=== PATIENT | female | born 1955 | race Caucasian/White ===

== ENCOUNTER 2017-01-19 12:16 | Observation (INO) | payer BC ==
[2017-01-19] MEDS ORDERED: Ondansetron 4 MG/2 ML SDV IVPUSH ONE (12:19)
[2017-01-19] MEDS ORDERED: Ondansetron 4 MG/2 ML SDV ONE (12:43)
[2017-01-19] MEDS ORDERED: Ondansetron 4 MG/2 ML SDV IVPUSH STA ×2 (12:43→14:00)
[2017-01-19 12:48] LABS: CHLORIDE,CL 103 mEq/L (98-106); SODIUM,NA 140 mEq/L (136-145)
--- NOTE | 2017-01-19 12:48 | EDM.PDOC ---
ED HPI GENERAL MEDICAL PROBLEM - General Chief Complaint: General Stated Complaint: VOMITTING/REALLY DIZZY Time Seen by Provider: 01/19/17 12:29 Source of Information: Reports: Patient, Family History Limitations: Reports: No Limitations - History of Present Illness INITIAL COMMENTS - FREE TEXT/NARRATIVE: Patient presents to ER with with severe dizziness and vomiting. Patient states she noted this about 2 hours ago with rapid onset while out of town doing errands. She states she was getting into car and noted severe dizziness, some visual changes when vomiting of coffee she drank this am. She states she did not have breakfast and was starting a new diet today. Patient states she has had this episode previously abut 3 weeks ago with spontaneous resolution of the nausea in 4-5 hours. She felt she had a full recovery. She affirms extreme sweating but denies pain in head, abdomen or extremities. Denies trauma. She affirms extreme weakness. She denies illness or recent sick contacts. She presents to ER for evaluation. Onset: Today, Sudden Onset Date: 01/19/17 Onset Time: 10:00 Duration: Hour(s):, Constant Location: Reports: Abdomen Quality: Reports: Other (Severe nausea with emesis) Severity: Severe Improves with: Reports: Medication (Zofran 8 mg IV) Worsens with: Reports: Movement Context: Denies: Sick Contact, Trauma Associated Symptoms: Reports: Diaphoresis, Nausea/Vomiting. 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 Denies: Fever, Chills, Malaise, Fatigue, Night Sweats, Decreased Appetite HEENT: Reports: No Symptoms Respiratory: Reports: No Symptoms Cardiovascular: Reports: Blood Pressure Problem (History of HTN-stoppped medications when lost weight-she recently regained weight and indicated she was going to reinitiate antihypertensives.). Denies: Chest Pain Endocrine: Reports: No Symptoms GI/Abdominal: Reports: No Symptoms. Denies: Abdominal Pain, Black Stool, Bloody Stool, Constipation, Decreased Appetite, Difficulty Swallowing, Hematemesis, Melena : Reports: No Symptoms Musculoskeletal: Reports: No Symptoms Skin: Reports: No Symptoms Neurological: Reports: Tingling (BLE), Weakness Psychiatric: Reports: No Symptoms Hematologic/Lymphatic: Reports: No Symptoms Immunologic: Reports: No Symptoms ED EXAM, GENERAL - Physical Exam Exam: See Below General Appearance: Alert, Severe Distress (Diaphoretic) Eye Exam: Right Eye: Nystagmus (Left nystagmus), Bilateral Eye: EOMI, Normal Fundi, Normal Inspection, PERRL (Dilation with slow response-Bilaterally) Ears: Normal External Exam, Normal Canal, Hearing Grossly Normal, Normal TMs Ear Exam: Bilateral Ear: Auricle Normal, Canal Normal, TM normal Nose: Normal Inspection, Normal Mucosa, No Blood Throat/Mouth: Normal Inspection, Normal Lips, Normal Teeth, Normal Gums, Normal Oropharynx, Normal Voice, No Airway Compromise Head: Atraumatic, Normocephalic Neck: Normal Inspection, Supple, Non-Tender, Full Range of Motion Respiratory/Chest: No Respiratory Distress, Lungs Clear, Normal Breath Sounds, No Accessory Muscle Use, Chest Non-Tender Cardiovascular: Normal Peripheral Pulses, Regular Rate, Rhythm, No Edema, No JVD , No Murmur Peripheral Pulses: 2+: Carotid (L), Carotid (R), Brachial (L), Brachial (R), Radial (L), Radial (R), Femoral (L), Femoral (R), Popliteal (L), Popliteal (R), Posterior Tibial (L), Posterior Tibial (R), Dorsalis Pedis (L), Dorsalis Pedis ( R) GI/Abdominal: Soft, Non-Tender (Female) Exam: Deferred Rectal (Female) Exam: Deferred Back Exam: Normal Inspection, Full Range of Motion Extremities: Normal Inspection, Normal Range of Motion, Non-Tender, No Pedal Edema, Normal Capillary Refill Neurological: Alert, Oriented, CN II-XII Intact, Normal Cognition, Normal Gait, Normal Reflexes, No Motor/Sensory Deficits Psychiatric: Normal Affect, Normal Mood, Anxious Skin Exam: Warm, Dry, Normal Color, No Rash, Diaphoretic Course - Vital Signs Last Recorded V/S: Last Vital Signs Temp 35.2 C L 01/19/17 12:30 Pulse 103 H 01/19/17 12:30 Resp 22 H 01/19/17 12:30 BP 144/102 H 01/19/17 12:30 Pulse Ox 98 01/19/17 12:30 - Orders/Labs/Meds Orders: Active Orders 24 hr Category Date Time Status Head wo Cont [CT] Stat Exams 01/19/17 12:41 Taken DRUG SCREEN URINE BIORAD [URCHEM] Stat Lab 01/19/17 13:02 Uncollected GLYCOSYLATED HEMOGLOBIN,HGBA1C [CHEM] Stat Lab 01/19/17 13:23 Ordered UA W/MICROSCOPIC [URIN] Stat Lab 01/19/17 13:02 Uncollected NS + KCl 20mEq/L [Normal Saline with 20 mEq KCl] 1,000 Med 01/19/17 13:30 Active ml IV ASDIRECTED Medication Orders Potassium Chloride/Sodium Chloride (Normal Saline With 20 Meq Kcl) 1,000 mls @ 125 mls/hr IV ASDIRECTED JESUS Labs: Laboratory Tests 01/19/17 01/19/17 Range/Units 12:19 12:25 WBC 10.2 H (5.0-10.0) 10^3/uL RBC 4.83 (4.00-5.50) 10^6/uL Hgb 14.1 (12.0-16.0) g/dL Hct 39.6 (37.0-47.0) % MCV 82.0 (82.0-94.0) fL MCH 29.2 (27.0-32.0) pg MCHC 35.6 (33.0-38.0) g/dL RDW Coeff of Lulu 13.3 (11.0-15.0) % Plt Count 287 (150-400) 10^3/uL Neut % (Auto) 43.5 (35-85) % Lymph % (Auto) 46.4 (10-55) % Johnson % (Auto) 8.7 (0-16) % Eos % (Auto) 1.1 (0-5) % Baso % (Auto) 0.3 (0-3) % Neut # (Auto) 4.46 (1.80-7.00) 10^3/uL Lymph # (Auto) 4.75 (1.00-4.80) 10^3/uL Johnson # (Auto) 0.89 H (0.00-0.80) 10^3/uL Eos # (Auto) 0.11 (0.00-0.45) 10^3/uL Baso # (Auto) 0.03 10^3/uL Sodium 140 (136-145) mEq/L Potassium 3.2 L D (3.5-5.0) mEq/L Chloride 103 (98-106) mEq/L Carbon Dioxide 18 L (21-32) mmol/L BUN 23 H D (7-18) mg/dL Creatinine 0.7 (0.6-1.0) mg/dL Est Cr Clr Drug Dosing 77.87 mL/min Estimated GFR (MDRD) > 60 (>=60) mL/min Glucose 217 H D (75-99) mg/dL Calcium 9.8 (8.4-10.1) mg/dL Total Bilirubin 0.5 (0.0-1.0) mg/dL AST 15 (15-37) U/L ALT 25 (12-78) U/L Alkaline Phosphatase 95 (46-116) U/L Total Protein 8.4 H (6.4-8.2) g/dL Albumin 4.3 (3.4-5.0) g/dL Meds: Medications Generic Name Dose Route Start Last Admin Trade Name Freq PRN Reason Stop Dose Admin Potassium Chloride/Sodium Chloride 1,000 mls @ 125 mls/hr 01/19/17 13:30 Normal Saline With 20 Meq Kcl IV ASDIRECTED JESUS Discontinued Medications Generic Name Dose Route Start Last Admin Trade Name Freq PRN Reason Stop Dose Admin Ondansetron HCl 8 mg 01/19/17 12:19 01/19/17 13:28 Zofran IVPUSH 01/19/17 12:20 8 mg STAT ONE Administration Ondansetron HCl Confirm 01/19/17 12:43 01/19/17 13:31 Zofran Administered 01/19/17 12:44 Not Given Dose 4 mg .ROUTE .STK-MED ONE Ondansetron HCl 4 mg 01/19/17 12:43 01/19/17 13:30 Zofran IVPUSH 08/28/17 12:44 4 mg NOW STA Administration Departure - Departure Time of Disposition: 13:50 Disposition: Refer to Observation Condition: Good Clinical Impression: Hypokalemia, Nausea & vomiting, Vertigo - Discharge Information Forms: ED Department Discharge - Problem List & Annotations (1) Nausea & vomiting SNOMED Code(s): 06466891 Code(s): R11.2 - NAUSEA WITH VOMITING, UNSPECIFIED Status: Acute (2) Vertigo SNOMED Code(s): 369262783 Code(s): R42 - DIZZINESS AND GIDDINESS Status: Acute - My Orders Last 24 Hours: My Active Orders 01/19/17 12:41 Head wo Cont [CT] Stat 01/19/17 13:02 DRUG SCREEN URINE BIORAD [URCHEM] Stat UA W/MICROSCOPIC [URIN] Stat 01/19/17 13:23 GLYCOSYLATED HEMOGLOBIN,HGBA1C [CHEM] Stat 01/19/17 13:30 NS + KCl 20mEq/L [Normal Saline with 20 mEq KCl] 1,000 ml IV ASDIRECTED - Assessment/Plan Admission H&P: Please use this note as an admission H&P Last 24 Hours: My Active Orders 01/19/17 12:41 Head wo Cont [CT] Stat 01/19/17 13:02 DRUG SCREEN URINE BIORAD [URCHEM] Stat UA W/MICROSCOPIC [URIN] Stat 01/19/17 13:23 GLYCOSYLATED HEMOGLOBIN,HGBA1C [CHEM] Stat 01/19/17 13:30 NS + KCl 20mEq/L [Normal Saline with 20 mEq KCl] 1,000 ml IV ASDIRECTED Assessment:: Nausea and Vomiting Hypokalemia Vertigo Plan: Discussed admission for observation and IVF hydration. Await CT results Antiemetics.-
[2017-01-19] MEDS: NS + KCl 20mEq/L 1,000 ML IV SCH (14:05)
[2017-01-19] MEDS ORDERED: Acetaminophen 325 MG Tab PO PRN (14:19)
[2017-01-19] MEDS: Pantoprazole 40 MG Vial IVPUSH SCH (14:40)
[2017-01-19] MEDS: Promethazine 12.5 MG in Sodium Chloride 0.9% 50 ML IV PRN (16:18)
[2017-01-19] MEDS ORDERED: Ketorolac 30 MG/ML SDV IVPUSH PRN (19:29)
[2017-01-19] MEDS ORDERED: Enalaprilat 1.25 MG/ML SDV IVPUSH ONE (20:37)
--- NOTE | 2017-01-19 20:43 | PCM.PN ---
- General Info Date of Service: 01/19/17 Admission Dx/Problem (Free Text): Admission from ER with Vertigo, nausea, vomiting with subsequent hypokalemia. 01/19/2017-2030- patient with frontal "sinus" headache, noted persistent HTN has not taken Lisinopril as previous prescribed for the past year or so as weight loss was controlling her HTN. Attempted to resume Lisinopril 20 mg po patient refuses indicates she thinks will make her more nausea. Agrees to Ketorolac 30mg IV for headache. Functional Status: Reports: Pain Controlled, Ambulating, Urinating Pain Score: 2 - Review of Systems General: Reports: Weakness, Fatigue, Appetite (Decreased as feels shemay become nauseated and vomit.). Denies: Fever, Malaise, Chills, Night Sweats HEENT: Reports: Headaches, Sinus Congestion. Denies: Visual Changes Pulmonary: Reports: No Symptoms Cardiovascular: Reports: No Symptoms Gastrointestinal: Reports: Decreased Appetite. Denies: Abdominal Pain, Constipation, Diarrhea, Difficulty Swallowing, Flatus, Hematochezia, Melena, Nausea, Vomiting Genitourinary: Reports: No Symptoms Musculoskeletal: Reports: No Symptoms Skin: Reports: No Symptoms Neurological: Reports: Headache, Weakness. Denies: Confusion, Dizziness, Numbness, Paresthesia, Seizure, Syncope, Tingling, Tremors, Trouble Speaking, Difficulty Walking, Change in Speech, Gait Disturbance Psychiatric: Reports: No Symptoms - Patient Data Vitals - Most Recent: Last Vital Signs Temp 36.4 C 01/19/17 20:00 Pulse 83 01/19/17 20:00 Resp 18 01/19/17 20:00 BP 196/103 H 01/19/17 20:00 Pulse Ox 98 01/19/17 20:00 Weight - Most Recent: 79.288 kg Med Orders - Current: Current Medications Acetaminophen (Tylenol) 650 mg PO Q4H PRN PRN Reason: Pain (Mild 1-3)/fever Enalaprilat (Vasotec Iv) 1.25 mg IVPUSH ONETIME ONE Stop: 01/19/17 20:38 Potassium Chloride/Sodium Chloride (Normal Saline With 20 Meq Kcl) 1,000 mls @ 75 mls/hr IV ASDIRECTED JESUS Last Admin: 01/19/17 14:05 Dose: 125 mls/hr Promethazine HCl 12.5 mg/ (Sodium Chloride) 50.5 mls @ 100 mls/hr IV Q6H PRN PRN Reason: Nausea/Vomiting Last Admin: 01/19/17 16:18 Dose: 100 mls/hr Ketorolac Tromethamine (Toradol) 30 mg IVPUSH Q6H PRN PRN Reason: Pain Stop: 01/24/17 19:29 Last Admin: 01/19/17 19:44 Dose: 30 mg Lisinopril (Prinivil) 20 mg PO DAILY JESUS Pantoprazole Sodium (Protonix Iv) 40 mg IVPUSH Q24H JESUS Last Admin: 01/19/17 14:40 Dose: 40 mg Discontinued Medications Ondansetron HCl (Zofran) 8 mg IVPUSH STAT ONE Stop: 01/19/17 12:20 Last Admin: 01/19/17 13:28 Dose: 8 mg Ondansetron HCl (Zofran) Confirm Administered Dose 4 mg .ROUTE .STK-MED ONE Stop: 01/19/17 12:44 Last Admin: 01/19/17 13:31 Dose: Not Given Ondansetron HCl (Zofran) 4 mg IVPUSH NOW STA Stop: 01/19/17 12:44 Last Admin: 01/19/17 13:30 Dose: 4 mg Ondansetron HCl (Zofran) 4 mg IVPUSH NOW STA Stop: 01/19/17 14:01 Last Admin: 01/19/17 14:00 Dose: 4 mg - Exam General: Alert, Oriented, Cooperative, Mild Distress HEENT: Pupils Equal, Pupils Reactive, EOMI, Mucous Membr. Moist/[place]. No: Scleral Icterus Neck: Supple, Trachea Midline, No JVD, No Thyromegaly, +2 Carotid Pulse wo Bruit. No: Lymphadenopathy, Carotid Bruit, Thyromegaly Lungs: Clear to Auscultation, Normal Respiratory Effort Cardiovascular: Regular Rate, Regular Rhythm, No Murmurs, Other (Telemetry NSR) GI/Abdominal Exam: Soft, Non-Tender (Female) Exam: Deferred Back Exam: Normal Inspection, Full Range of Motion Extremities: Normal Inspection, Normal Range of Motion, Non-Tender, No Pedal Edema, Normal Capillary Refill. No: Adin's Sign Peripheral Pulses: 2+: Carotid (L), Carotid (R), Brachial (L), Brachial (R), Radial (L), Radial (R), Dorsalis Pedis (L), Dorsalis Pedis (R) Skin: Warm, Dry, Intact Neurological: No New Focal Deficit, Normal Gait, Normal Speech, Normal Tone, Strength Equal Bilateral, Reflexes Equal Bilateral, Sensation Intact, Cranial Nerves Intact Psy/Mental Status: Alert, Normal Affect, Normal Mood, Labile Mood EKG INTERPRETATION Rhythm: NSR - Problem List & Annotations (1) Nausea & vomiting SNOMED Code(s): 04600542 Code(s): R11.2 - NAUSEA WITH VOMITING, UNSPECIFIED Status: Acute Current Visit: Yes (2) Vertigo SNOMED Code(s): 054277913 Code(s): R42 - DIZZINESS AND GIDDINESS Status: Acute Current Visit: Yes (3) Hypertension SNOMED Code(s): 91151910 Code(s): I10 - ESSENTIAL (PRIMARY) HYPERTENSION Status: Acute Current Visit: Yes - Problem List Review Problem List Initiated/Reviewed/Updated: Yes - My Orders Last 24 Hours: My Active Orders 01/19/17 19:29 Ketorolac [Toradol] 30 mg IVPUSH Q6H PRN 01/19/17 19:45 Lisinopril [Prinivil] 20 mg PO DAILY 01/19/17 20:37 Enalaprilat [Vasotec IV] 1.25 mg IVPUSH ONETIME ONE 01/20/17 05:11 CBC WITH AUTO DIFF [HEME] Routine CMP [COMPREHENSIVE METABOLIC PN,CMP] [CHEM] Routine - Assessment Assessment:: CT without contrast WNL Vertigo resolving-able to ambulate to BR-output WNL Nausea resolved with Phenergan 12. 5 mg IV @ 1600 Cephalgia frontal resolving post Ketorolac 30 mg IV Persistant HTN-Will give IV Vasotec ,decrease IVF to 75 cc hr and monitor closely. - Plan Plan:: IVF to 75 cc hr. Vasotec 1.25 mg IV for persistent HTN. Will continue to monitor patient and B/P closely.
[2017-01-19] MEDS: Lisinopril 20 MG Tab PO SCH (20:55)
[2017-01-19] MEDS ORDERED: Enalaprilat 1.25 MG/ML SDV ONE (21:00)
[2017-01-20] MEDS: NS + KCl 20mEq/L 1,000 ML IV SCH ×2 (00:12→13:17)
[2017-01-20] MEDS: Promethazine 12.5 MG in Sodium Chloride 0.9% 50 ML IV PRN (00:13)
[2017-01-20] MEDS: Lisinopril 20 MG Tab PO SCH (07:48)
[2017-01-20 08:27] LABS: CHLORIDE,CL 109 mEq/L (98-106); SODIUM,NA 142 mEq/L (136-145)
[2017-01-20] MEDS ORDERED: Ibuprofen 200 MG Tab PO PRN (09:10)
[2017-01-20] MEDS: Pantoprazole 40 MG Vial IVPUSH SCH (12:00)
[2017-01-20] MEDS: Meclizine 12.5 MG Tab PO PRN ×2 (12:05→17:35)
--- NOTE | 2017-01-20 13:21 | PCM.PN ---
- General Info Date of Service: 01/20/17 Admission Dx/Problem (Free Text): Admission from ER with Vertigo, nausea, vomiting with subsequent hypokalemia. 01/19/2017-2030- patient with frontal "sinus" headache, noted persistent HTN has not taken Lisinopril as previous prescribed for the past year or so as weight loss was controlling her HTN. Attempted to resume Lisinopril 20 mg po patient refuses indicates she thinks will make her more nausea. Agrees to Ketorolac 30mg IV for headache. Functional Status: Reports: Pain Controlled. Denies: Tolerating Diet (Did have a cup of juice this am which is the only intake she has had for 24 hours.) - Review of Systems General: Denies: Fever, Weakness, Fatigue, Malaise HEENT: Denies: Ear Pain, Sinus Congestion, Rhinitis, Visual Changes Pulmonary: Denies: Shortness of Breath, Cough, Wheezing Cardiovascular: Denies: Chest Pain, Palpitations, Lightheadedness Gastrointestinal: Reports: Nausea. Denies: Abdominal Pain, Diarrhea, Vomiting Genitourinary: Reports: No Symptoms Musculoskeletal: Reports: No Symptoms Neurological: Reports: Dizziness - Patient Data Vitals - Most Recent: Last Vital Signs Temp 97.8 F 01/20/17 07:50 Pulse 85 01/20/17 07:50 Resp 20 01/20/17 07:50 BP 176/92 H 01/20/17 07:50 Pulse Ox 99 01/20/17 07:50 Weight - Most Recent: 174 lb 12.8 oz I&O - Last 24 Hours: Intake & Output 01/19/17 01/20/17 01/20/17 22:59 06:59 14:59 Intake Total 1000 Balance 1000 Lab Results Last 24 Hours: Laboratory Results - last 24 hr 01/20/17 01/20/17 01/20/17 Range/Units 06:30 06:30 06:30 WBC 8.6 (5.0-10.0) 10^3/uL RBC 4.31 (4.00-5.50) 10^6/uL Hgb 12.4 (12.0-16.0) g/dL Hct 36.6 L (37.0-47.0) % MCV 84.9 (82.0-94.0) fL MCH 28.8 (27.0-32.0) pg MCHC 33.9 (33.0-38.0) g/dL RDW Coeff of Lulu 13.2 (11.0-15.0) % Plt Count 236 (150-400) 10^3/uL Neut % (Auto) 66.3 (35-85) % Lymph % (Auto) 25.5 (10-55) % [place] % (Auto) 7.4 (0-16) % Eos % (Auto) 0.7 (0-5) % Baso % (Auto) 0.1 (0-3) % Neut # (Auto) 5.71 (1.80-7.00) 10^3/uL Lymph # (Auto) 2.20 (1.00-4.80) 10^3/uL [place] # (Auto) 0.64 (0.00-0.80) 10^3/uL Eos # (Auto) 0.06 (0.00-0.45) 10^3/uL Baso # (Auto) 0.01 10^3/uL Sodium 142 (136-145) mEq/L Potassium 4.0 D (3.5-5.0) mEq/L Chloride 109 H (98-106) mEq/L Carbon Dioxide 26 D (21-32) mmol/L BUN 15 (7-18) mg/dL Creatinine 0.6 (0.6-1.0) mg/dL Est Cr Clr Drug Dosing 90.84 mL/min Estimated GFR (MDRD) > 60 (>=60) mL/min Glucose 90 D (75-99) mg/dL Hemoglobin A1c 5.5 (4.8-6.2) % Calcium 8.7 (8.4-10.1) mg/dL Total Bilirubin 0.5 (0.0-1.0) mg/dL AST 15 (15-37) U/L ALT 23 (12-78) U/L Alkaline Phosphatase 79 (46-116) U/L Total Protein 7.2 (6.4-8.2) g/dL Albumin 3.5 (3.4-5.0) g/dL TSH, Ultra Sensitive 0.44 (0.36-5.60) uIU/mL Med Orders - Current: Current Medications Acetaminophen (Tylenol) 650 mg PO Q4H PRN PRN Reason: Pain (Mild 1-3)/fever Potassium Chloride/Sodium Chloride (Normal Saline With 20 Meq Kcl) 1,000 mls @ 75 mls/hr IV ASDIRECTED [facility] Last Admin: 01/20/17 00:12 Dose: 75 mls/hr Promethazine HCl 12.5 mg/ (Sodium Chloride) 50.5 mls @ 100 mls/hr IV Q6H PRN PRN Reason: Nausea/Vomiting Last Admin: 01/20/17 00:13 Dose: 100 mls/hr Lisinopril (Prinivil) 20 mg PO DAILY [facility] Last Admin: 01/20/17 07:48 Dose: 20 mg Meclizine HCl (Antivert) 25 mg PO Q6H PRN PRN Reason: Dizziness Last Admin: 01/20/17 12:05 Dose: 25 mg Pantoprazole Sodium (Protonix Iv) 40 mg IVPUSH Q24H [facility] Last Admin: 01/20/17 12:00 Dose: 40 mg Discontinued Medications Enalaprilat (Vasotec Iv) 1.25 mg IVPUSH ONETIME ONE Stop: 01/19/17 20:38 Last Admin: 01/19/17 20:53 Dose: 1.25 mg Enalaprilat (Vasotec Iv) Confirm Administered Dose 1.25 mg .ROUTE .STK-MED ONE Stop: 01/19/17 21:01 Last Admin: 01/19/17 20:57 Dose: Not Given Ketorolac Tromethamine (Toradol) 30 mg IVPUSH Q6H PRN PRN Reason: Pain Stop: 01/24/17 19:29 Last Admin: 01/19/17 19:44 Dose: 30 mg Ondansetron HCl (Zofran) 8 mg IVPUSH STAT ONE Stop: 01/19/17 12:20 Last Admin: 01/19/17 13:28 Dose: 8 mg Ondansetron HCl (Zofran) Confirm Administered Dose 4 mg .ROUTE .STK-MED ONE Stop: 01/19/17 12:44 Last Admin: 01/19/17 13:31 Dose: Not Given Ondansetron HCl (Zofran) 4 mg IVPUSH NOW STA Stop: 01/19/17 12:44 Last Admin: 01/19/17 13:30 Dose: 4 mg Ondansetron HCl (Zofran) 4 mg IVPUSH NOW STA Stop: 01/19/17 14:01 Last Admin: 01/19/17 14:00 Dose: 4 mg - Exam General: Alert, Oriented HEENT: Pupils Equal, Pupils Reactive, EOMI, Mucous Membr. Moist/[place] Neck: Supple Lungs: Clear to Auscultation, Normal Respiratory Effort Cardiovascular: Regular Rate, Regular Rhythm GI/Abdominal Exam: Normal Bowel Sounds, Soft, Non-Tender Extremities: Normal Inspection, No Pedal Edema Skin: Warm, Dry Neurological: Other (patient much improved. Able to tolerate short distance. States room not spinning as much as yesterday. Gait still off balance) Psy/Mental Status: Alert, Normal Affect, Normal Mood - Problem List & Annotations (1) Nausea & vomiting SNOMED Code(s): 28927526 Code(s): R11.2 - NAUSEA WITH VOMITING, UNSPECIFIED Status: Acute Priority : High Current Visit: Yes (2) Vertigo SNOMED Code(s): 242369984 Code(s): R42 - DIZZINESS AND GIDDINESS Status: Acute Priority: High Current Visit: Yes - Problem List Review Problem List Initiated/Reviewed/Updated: Yes - My Orders Last 24 Hours: My Active Orders 01/20/17 08:44 PT Evaluation and Treatment [CONS] Routine Meclizine [Antivert] 25 mg PO Q6H PRN - Assessment Assessment:: Vertigo - Plan Plan:: Patient improved today. Able to ambulate short distance without as much dizziness today. No nausea or vomiting this am. She states her gait is still a bit unsteady but much better. Labs are improved today, potassium up to 4. All other labs normal. Continue with IV fluids. Attempt canalith repositioning today if patient able to tolerate. Possible discharge in am if able.
[2017-01-20] MEDS ORDERED: cloNIDine 0.1 MG Tab PO ONE (17:21)
[2017-01-20] MEDS ORDERED: cloNIDine 0.1 MG Tab ONE (17:47)
[2017-01-21] MEDS: NS + KCl 20mEq/L 1,000 ML IV SCH (03:32)
[2017-01-21] MEDS: Lisinopril 20 MG Tab PO SCH (07:22)
[2017-01-21] MEDS ORDERED: Hydrochlorothiazide 12.5 MG Cap PO SCH (08:00)
[2017-01-21] MEDS ORDERED: Promethazine 25 MG Tab PO SCH (08:00)
[2017-01-21] MEDS ORDERED: Sodium Chloride 0.9% 10 ML Syringe FLUSH PRN (08:34)
[2017-01-21] MEDS: Pantoprazole 40 MG Vial IVPUSH SCH (11:38)
[2017-01-21 12:59] VITALS: BP 166/91
--- NOTE | 2017-01-21 19:58 | PCM.DCSUM1 ---
Discharge Summary - Hospital Course Free Text/Narrative:: Patient admitted from ER with acute vertigo. Had significant dizziness, nausea and vomiting with any movement. Was in town doing errands and developed acute onset of dizziness and did not tolerate riding in the car. Had another episode like this about 3 weeks ago but wasn't as severe and resolved on its own. Has not had any recent head trauma. No recent URI. CT scan was negative. Potassium low at 3.2 on admit. Admitted for fluid rehydration with potassium replacement. - Discharge Data Discharge Date: 01/21/17 Discharge Disposition: Home, Self-Care 01 Condition: Good - Discharge Diagnosis/Problem(s) (1) Nausea & vomiting SNOMED Code(s): 42547232 ICD Code: R11.2 - NAUSEA WITH VOMITING, UNSPECIFIED Status: Acute Priority: High (2) Vertigo SNOMED Code(s): 798462242 ICD Code: R42 - DIZZINESS AND GIDDINESS Status: Acute Priority: High - Patient Summary/Data Complications: none Consults: Consultations 01/20/17 08:44 PT Evaluation and Treatment [CONS] Routine Hospital Course: Patient continued to have significant dizziness on day of admission. Unable to tolerate any activity or consuming any fluids due to nausea and dizziness. Had slow recovery of appetite, initially only able to tolerate sips of fluids. After 24 hours, started to improve. Blood pressure was high through much of stay. Was started back on her Lisinopril after getting a dose of Vasotec IV. She had been off her Lisinopril for about 3 years as she had lost over 35# but admits that she has regained that weight and attributes her hypertension again to that. She didn't get good control with just Lisinopril so HCTZ was added. Did have canalith repositioning by PT and admits that did help to improve her symptoms. Today is ambulating about on her own, soft collar intact. Does still have mild dizziness but no further nausea. - Patient Instructions Diet: Heart Healthy Diet Activity: As Tolerated Notify Provider of: Nausea and/or Vomiting - Discharge Plan Prescriptions/Med Rec: Lisinopril/Hydrochlorothiazide [Lisinopril-Hctz 20-25 mg Tab] 1 each PO DAILY # 30 tablet Promethazine [Phenergan] 25 mg PO Q8H #12 tablet Home Medications: Home Meds Lisinopril/Hydrochlorothiazide [Lisinopril-Hctz 20-25 mg Tab] 1 each PO DAILY # 30 tablet 01/21/17 [Rx] Promethazine [Phenergan] 25 mg PO Q8H #12 tablet 01/21/17 [Rx] Forms: ED Department Discharge Referrals: Joshua Akhtar MD [Primary Care Provider] - (Follow up with Dr. Akhtar in one week) - Discharge Summary/Plan Comment DC Time >30 min.: No Discharge Summary/Plan Comment: Home with Prometh to be taken every 8 hours for the next 3 days. Continue on Lisinopril/HCTZ 20/25. See Dr. Akhtar in a week or sooner as needed. - General Info Date of Service: 01/21/17 Admission Dx/Problem (Free Text: Admission from ER with Vertigo, nausea, vomiting with subsequent hypokalemia. 01/19/2017-2030- patient with frontal "sinus" headache, noted persistent HTN has not taken Lisinopril as previous prescribed for the past year or so as weight loss was controlling her HTN. Attempted to resume Lisinopril 20 mg po patient refuses indicates she thinks will make her more nausea. Agrees to Ketorolac 30mg IV for headache. Functional Status: Reports: Pain Controlled, Tolerating Diet, Ambulating - Review of Systems General: Reports: Weakness, Fatigue. Denies: Fever HEENT: Denies: Headaches, Sinus Congestion, Rhinitis Pulmonary: Denies: Shortness of Breath, Cough, Wheezing Cardiovascular: Denies: Chest Pain, Edema, Lightheadedness Gastrointestinal: Denies: Abdominal Pain, Diarrhea, Nausea, Vomiting Genitourinary: Reports: No Symptoms Musculoskeletal: Reports: No Symptoms Skin: Reports: No Symptoms Neurological: Reports: Dizziness Psychiatric: Reports: No Symptoms - Patient Data Vitals - Most Recent: Last Vital Signs Temp 97.8 F 01/21/17 12:00 Pulse 82 01/21/17 12:00 Resp 18 01/21/17 12:00 BP 166/91 H 01/21/17 12:00 Pulse Ox 95 01/21/17 12:00 Weight - Most Recent: 174 lb 12.8 oz I&O - Last 24 hours: Intake & Output 01/21/17 01/21/17 01/21/17 06:59 14:59 22:59 Intake Total 1000 Balance 1000 Med Orders - Current: Current Medications Discontinued Medications Acetaminophen (Tylenol) 650 mg PO Q4H PRN PRN Reason: Pain (Mild 1-3)/fever Last Admin: 01/20/17 13:17 Dose: 650 mg Clonidine HCl (Catapres) 0.1 mg PO ONETIME ONE Stop: 01/20/17 17:22 Last Admin: 01/20/17 17:35 Dose: 0.1 mg Clonidine HCl (Catapres) Confirm Administered Dose 0.1 mg .ROUTE .STK-MED ONE Stop: 01/20/17 17:48 Last Admin: 01/20/17 17:35 Dose: Not Given Enalaprilat (Vasotec Iv) 1.25 mg IVPUSH ONETIME ONE Stop: 01/19/17 20:38 Last Admin: 01/19/17 20:53 Dose: 1.25 mg Enalaprilat (Vasotec Iv) Confirm Administered Dose 1.25 mg .ROUTE .STK-MED ONE Stop: 01/19/17 21:01 Last Admin: 01/19/17 20:57 Dose: Not Given Hydrochlorothiazide (Hydrochlorothiazide) 12.5 mg PO DAILY [facility] Last Admin: 01/21/17 07:22 Dose: 12.5 mg Potassium Chloride/Sodium Chloride (Normal Saline With 20 Meq Kcl) 1,000 mls @ 75 mls/hr IV ASDIRECTED [facility] Last Admin: 01/21/17 03:32 Dose: 75 mls/hr Promethazine HCl 12.5 mg/ (Sodium Chloride) 50.5 mls @ 100 mls/hr IV Q6H PRN PRN Reason: Nausea/Vomiting Last Admin: 01/20/17 00:13 Dose: 100 mls/hr Ketorolac Tromethamine (Toradol) 30 mg IVPUSH Q6H PRN PRN Reason: Pain Stop: 01/24/17 19:29 Last Admin: 01/19/17 19:44 Dose: 30 mg Lisinopril (Prinivil) 20 mg PO DAILY [facility] Last Admin: 01/21/17 07:22 Dose: 20 mg Meclizine HCl (Antivert) 25 mg PO Q6H PRN PRN Reason: Dizziness Last Admin: 01/20/17 17:35 Dose: 25 mg Ondansetron HCl (Zofran) 8 mg IVPUSH STAT ONE Stop: 01/19/17 12:20 Last Admin: 01/19/17 13:28 Dose: 8 mg Ondansetron HCl (Zofran) Confirm Administered Dose 4 mg .ROUTE .STK-MED ONE Stop: 01/19/17 12:44 Last Admin: 01/19/17 13:31 Dose: Not Given Ondansetron HCl (Zofran) 4 mg IVPUSH NOW STA Stop: 01/19/17 12:44 Last Admin: 01/19/17 13:30 Dose: 4 mg Ondansetron HCl (Zofran) 4 mg IVPUSH NOW STA Stop: 01/19/17 14:01 Last Admin: 01/19/17 14:00 Dose: 4 mg Pantoprazole Sodium (Protonix Iv) 40 mg IVPUSH Q24H [facility] Last Admin: 01/21/17 11:38 Dose: 40 mg Promethazine HCl (Phenergan) 25 mg PO Q8H [facility] Stop: 01/24/17 00:01 Last Admin: 01/21/17 09:37 Dose: 25 mg Sodium Chloride (Saline Flush) 10 ml FLUSH ASDIRECTED PRN PRN Reason: Keep Vein Open - Exam General: Reports: Alert, Oriented HEENT: Reports: Mucous Membr. Moist/[place] Neck: Reports: Supple Lungs: Reports: Clear to Auscultation, Normal Respiratory Effort Cardiovascular: Reports: Regular Rate, Regular Rhythm GI/Abdominal Exam: Normal Bowel Sounds, Soft, Non-Tender Extremities: Normal Inspection, No Pedal Edema Skin: Reports: Warm, Dry Neurological: Reports: No New Focal Deficit Psy/Mental Status: Reports: Alert, Normal Affect, Normal Mood *Q Meaningful Use (DIS) - VTE *Q VTE Criteria *Q: - Stroke *Q Stroke Criteria *Q: - AMI *Q AMI Criteria *Q:
== END 2017-01-21 14:46 | disposition home or self-care (01) ==
LOC: CC.ED 12:16 → UNDOADMOB 14:10 → CC.MS 14:10
PROVIDERS: ADMIT Nurse Practitioner; ATTEND Family Medicine
DX: R42 Dizziness and giddiness (principal); R11.2 Nausea with vomiting, unspecified; Z79.899 Other long term (current) drug therapy; Z98.890 Other specified postprocedural states; Z90.710 Acquired absence of both cervix and uterus
CPT/HCPCS: 36415; 70450; 80053; 80305; 81001; 82271; 83036; 84443; 85025; 96374; 96376; 97112; 97161; 99285; A9270; C9113; J1885; J2405; J2550; J3480; J7050; 96361; 96365; 96366; 96375; G0378

== ENCOUNTER 2017-10-02 14:18 | Inpatient (IN) | payer BC ==
[2017-10-02 15:36] LABS: CHLORIDE,CL 97 mEq/L (98-106); SODIUM,NA 134 mEq/L (136-145)
[2017-10-02] MEDS ORDERED: Ondansetron 4 MG/2 ML SDV IV PRN (16:54)
[2017-10-02] MEDS: cefTRIAXone 1 GM Vial IVPUSH SCH (17:40)
[2017-10-02] MEDS: D5 1/2 NS w/ 20 mEq/L KCl 1,000 ML IV SCH (17:43)
[2017-10-02] MEDS: Ibuprofen 200 MG Tab PO PRN (19:00)
[2017-10-02] MEDS: Enoxaparin 40 MG/0.4 ML Syringe SUBCUT SCH (20:14)
[2017-10-02] MEDS: Acetaminophen 325 MG Tab PO PRN (23:22)
[2017-10-03] MEDS: D5 1/2 NS w/ 20 mEq/L KCl 1,000 ML IV SCH ×2 (01:15→09:25)
[2017-10-03] MEDS: Ibuprofen 200 MG Tab PO PRN ×3 (01:48→15:53)
[2017-10-03] MEDS: Lisinopril 20 MG Tab PO SCH (07:36)
[2017-10-03] MEDS: Hydrochlorothiazide 25 MG Tab PO SCH (07:37)
[2017-10-03 08:03] LABS: CHLORIDE,CL 103 mEq/L (98-106); SODIUM,NA 137 mEq/L (136-145)
--- NOTE | 2017-10-03 09:12 | PCM.PN ---
- General Info Date of Service: 10/03/17 Functional Status: Reports: Pain Controlled, Tolerating Diet - Review of Systems General: Reports: Fever (this has been controlled with medications. ) HEENT: Reports: No Symptoms Pulmonary: Reports: No Symptoms Cardiovascular: Reports: No Symptoms Gastrointestinal: Reports: No Symptoms Genitourinary: Reports: Dysuria Musculoskeletal: Reports: No Symptoms Skin: Reports: No Symptoms Neurological: Reports: Headache Psychiatric: Reports: No Symptoms - Patient Data Vitals - Most Recent: Last Vital Signs Temp 97.9 F 10/03/17 08:00 Pulse 71 10/03/17 08:00 Resp 20 10/03/17 08:00 BP 109/49 L 10/03/17 08:00 Pulse Ox 97 10/03/17 08:00 Weight - Most Recent: 176 lb 6.4 oz I&O - Last 24 Hours: Intake & Output 10/02/17 10/03/17 10/03/17 22:59 06:59 14:59 Intake Total 942 Balance 942 Lab Results Last 24 Hours: Laboratory Results - last 24 hr 10/02/17 10/02/17 10/02/17 Range/Units 14:24 15:11 15:11 WBC 10.2 H (5.0-10.0) 10^3/uL RBC 4.40 (4.00-5.50) 10^6/uL Hgb 12.8 (12.0-16.0) g/dL Hct 36.9 L (37.0-47.0) % MCV 83.9 (82.0-94.0) fL MCH 29.1 (27.0-32.0) pg MCHC 34.7 (33.0-38.0) g/dL RDW Coeff of Lulu 13.8 (11.0-15.0) % Plt Count 176 (150-400) 10^3/uL Neut % (Auto) 81.9 (35-85) % Lymph % (Auto) 10.6 (10-55) % [place] % (Auto) 7.2 (0-16) % Eos % (Auto) 0.1 (0-5) % Baso % (Auto) 0.2 (0-3) % Neut # (Auto) 8.38 H (1.80-7.00) 10^3/uL Lymph # (Auto) 1.09 (1.00-4.80) 10^3/uL [place] # (Auto) 0.74 (0.00-0.80) 10^3/uL Eos # (Auto) 0.01 (0.00-0.45) 10^3/uL Baso # (Auto) 0.02 10^3/uL ESR 68 H (0-20) mm/hr Sodium 134 L (136-145) mEq/L Potassium 3.0 L (3.5-5.0) mEq/L Chloride 97 L (98-106) mEq/L Carbon Dioxide 28 (21-32) mmol/L BUN 20 H (7-18) mg/dL Creatinine 0.8 (0.6-1.0) mg/dL Est Cr Clr Drug Dosing TNP Estimated GFR (MDRD) > 60 (>=60) mL/min Glucose 130 H D (75-99) mg/dL Lactic Acid (0.4-2.0) mmol/L Calcium 8.8 (8.4-10.1) mg/dL Total Bilirubin 0.7 (0.0-1.0) mg/dL AST 31 (15-37) U/L ALT 31 (12-78) U/L Alkaline Phosphatase 70 (46-116) U/L C-Reactive Protein 32.4 H (0.2-0.8) mg/dL Total Protein 8.1 (6.4-8.2) g/dL Albumin 3.1 L (3.4-5.0) g/dL Urine Color Yellow (YELLOW) Urine Appearance Slightly cloudy (CLEAR) Urine pH 6.0 (4.5-8.0) Ur Specific [place] 1.025 H (1.003-1.020) Urine Protein >=300 H (NEGATIVE) mg/dL Urine Glucose (UA) Negative (NEGATIVE) mg/dL Urine Ketones 15 H (NEGATIVE) mg/dL Urine Occult Blood Moderate H (NEGATIVE) Urine Nitrite Positive H (NEGATIVE) Urine Bilirubin Negative (NEGATIVE) Urine Urobilinogen 4.0 H (0.2-1.0) EU/dL Ur Leukocyte Esterase Moderate H (NEGATIVE) Urine RBC 5-10 H (0-5) /HPF Urine WBC >100 H (0-5) /HPF Ur Squamous Epith Cells Few H (NOT SEEN) /HPF Urine Bacteria Few H (NOT SEEN) /HPF Urinalysis Comment 10/03/17 10/03/17 10/03/17 Range/Units 05:00 05:11 05:11 WBC 5.3 (5.0-10.0) 10^3/uL RBC 3.91 L (4.00-5.50) 10^6/uL Hgb 11.3 L (12.0-16.0) g/dL Hct 33.0 L (37.0-47.0) % MCV 84.4 (82.0-94.0) fL MCH 28.9 (27.0-32.0) pg MCHC 34.2 (33.0-38.0) g/dL RDW Coeff of Lulu 13.6 (11.0-15.0) % Plt Count 163 (150-400) 10^3/uL Neut % (Auto) 75.5 (35-85) % Lymph % (Auto) 13.8 (10-55) % [place] % (Auto) 9.6 (0-16) % Eos % (Auto) 0.9 (0-5) % Baso % (Auto) 0.2 (0-3) % Neut # (Auto) 4.00 (1.80-7.00) 10^3/uL Lymph # (Auto) 0.73 L (1.00-4.80) 10^3/uL [place] # (Auto) 0.51 (0.00-0.80) 10^3/uL Eos # (Auto) 0.05 (0.00-0.45) 10^3/uL Baso # (Auto) 0.01 10^3/uL ESR (0-20) mm/hr Sodium 137 (136-145) mEq/L Potassium 3.4 L (3.5-5.0) mEq/L Chloride 103 (98-106) mEq/L Carbon Dioxide 28 (21-32) mmol/L BUN 10 (7-18) mg/dL Creatinine 0.6 (0.6-1.0) mg/dL Est Cr Clr Drug Dosing 82.48 Estimated GFR (MDRD) > 60 (>=60) mL/min Glucose 151 H (75-99) mg/dL Lactic Acid 1.3 (0.4-2.0) mmol/L Calcium 8.0 L (8.4-10.1) mg/dL Total Bilirubin (0.0-1.0) mg/dL AST (15-37) U/L ALT (12-78) U/L Alkaline Phosphatase (46-116) U/L C-Reactive Protein 20.7 H (0.2-0.8) mg/dL Total Protein (6.4-8.2) g/dL Albumin (3.4-5.0) g/dL Urine Color (YELLOW) Urine Appearance (CLEAR) Urine pH (4.5-8.0) Ur Specific [place] (1.003-1.020) Urine Protein (NEGATIVE) mg/dL Urine Glucose (UA) (NEGATIVE) mg/dL Urine Ketones (NEGATIVE) mg/dL Urine Occult Blood (NEGATIVE) Urine Nitrite (NEGATIVE) Urine Bilirubin (NEGATIVE) Urine Urobilinogen (0.2-1.0) EU/dL Ur Leukocyte Esterase (NEGATIVE) Urine RBC (0-5) /HPF Urine WBC (0-5) /HPF Ur Squamous Epith Cells (NOT SEEN) /HPF Urine Bacteria (NOT SEEN) /HPF Urinalysis Comment Ace Results Last 24 Hours: Microbiology 10/02/17 14:38 Urine Culture - Preliminary Urine, Voided Gram Negative Rods Med Orders - Current: Current Medications Acetaminophen (Tylenol) 650 mg PO Q4H PRN PRN Reason: Pain (Mild 1-3)/fever Last Admin: 10/02/17 23:22 Dose: 650 mg Ceftriaxone Sodium (Rocephin) 1 gm IVPUSH Q24H [facility] Last Admin: 10/02/17 17:40 Dose: 1 gm Enoxaparin Sodium (Lovenox) 40 mg SUBCUT BEDTIME [facility] Last Admin: 10/02/17 20:14 Dose: 40 mg Hydrochlorothiazide (Hydrochlorothiazide) 25 mg PO DAILY [facility] Last Admin: 10/03/17 07:37 Dose: 25 mg Potassium Chloride/Dextrose/Sod Cl (D5 1/2 Ns W/ 20 Meq/L Kcl) 1,000 mls @ 125 mls/hr IV ASDIRECTED [facility] Last Admin: 10/03/17 01:15 Dose: 125 mls/hr Ibuprofen (Motrin) 400 mg PO Q6H PRN PRN Reason: Pain (mild 1-3) Last Admin: 10/03/17 01:48 Dose: 400 mg Lisinopril (Prinivil) 20 mg PO DAILY [facility] Last Admin: 10/03/17 07:36 Dose: 20 mg Ondansetron HCl (Zofran) 4 mg IV Q4H PRN PRN Reason: Nausea/Vomiting - Exam General: Alert, Oriented, Cooperative Neck: Supple Lungs: Clear to Auscultation, Normal Respiratory Effort Cardiovascular: Regular Rate, Regular Rhythm GI/Abdominal Exam: Normal Bowel Sounds, Soft, Non-Tender, No Organomegaly, No Distention, No Abnormal Bruit, No Mass, Pelvis Stable Back Exam: Normal Inspection, Full Range of Motion. No: CVA Tenderness (L), CVA Tenderness (R) Extremities: Normal Inspection, Normal Range of Motion, Non-Tender, No Pedal Edema, Normal Capillary Refill Peripheral Pulses: 2+: Radial (R), Femoral (L), Posterior Tibial (L), Posterior Tibial (R) Skin: Warm, Dry, Intact Neurological: No New Focal Deficit Psy/Mental Status: Alert, Normal Affect, Normal Mood - Problem List Review Problem List Initiated/Reviewed/Updated: Yes - Plan Plan:: This patient is a 62 year old female that was admitted yesterday for UTI/Pylo. Patient had fever and UTI. Patient today has fever that is controlled by medication. Patient reports a mild headache and mild dysuria. Patient denies n, v, d, back pain, abd pain, pelvic pain. Patient is alert and oriented. BP, HR stable. Labs today have improved. WBC is 10.2, NA 137, K 3.4, CRP down to 20.7. Patient reports she is feeling some improvement. Patient will continue admit and tx.
[2017-10-03] MEDS: cefTRIAXone 1 GM Vial IVPUSH SCH (17:11)
[2017-10-03] MEDS: Acetaminophen 325 MG Tab PO PRN (17:25)
[2017-10-03] MEDS: Sodium Chloride 0.9% 1,000 ML IV SCH (18:00)
[2017-10-03] MEDS: Enoxaparin 40 MG/0.4 ML Syringe SUBCUT SCH (20:48)
[2017-10-04] MEDS: Sodium Chloride 0.9% 1,000 ML IV SCH (03:55)
[2017-10-04] MEDS: Ibuprofen 200 MG Tab PO PRN (05:09)
[2017-10-04] MEDS: Lisinopril 20 MG Tab PO SCH (07:51)
[2017-10-04] MEDS: Hydrochlorothiazide 25 MG Tab PO SCH (07:52)
[2017-10-04 07:53] VITALS: BP 122/65
[2017-10-04 08:17] LABS: CHLORIDE,CL 106 mEq/L (98-106); SODIUM,NA 139 mEq/L (136-145)
[2017-10-04] MEDS: cefTRIAXone 1 GM Vial IVPUSH SCH (10:01)
--- NOTE | 2017-10-04 10:14 | PCM.DCSUM1 ---
Discharge Summary - Hospital Course HPI Initial Comments: This patient was admitted on 10/02/17 for UTI with fever. Patient at the time did not have CVA tenderness. Patient was started on fluids, potassium, IV abx. The patient today is up and ambulating. The patient reports that she is ready to go home. The patient has been fever free now for greater than 24 hours. Patient had Motrin this morning at 5am for a chronic headache, not for fever. Patient reports she has chronic history of vertigo and headache that she is going to [place] for. She reports she is supposed to see her PCP for referral. Patient reports that she feels great today and at her 100% at home baseline. Patient labs today are improved. Her wbc is normal. Her K is 3.4 without replacement, her CRP has improved to 10.7. The patient is fully alert and oriented. She denies any pain, n, v, d, f. Patient denies dysuria, back pain, abd pain, cp. I have discussed with the patient possibility of going home today verses tomorrow. She is aware of risk of going home today and that she must increase fluid intake. She is aware that she must return for fever, vomiting, pain, or any other concerns to the ER. Patient is to see her PCP tomorrow. Patient urine today is also unremarkable. I have reviewed culture. Will discharge. Stable. - Discharge Data Discharge Date: 10/04/17 Discharge Disposition: Home, Self-Care 01 Condition: Good - Patient Instructions Diet: Usual Diet as Tolerated Activity: As Tolerated Driving: May Drive Today Showering/Bathing: May Shower Notify Provider of: Fever, Increased Pain, Nausea and/or Vomiting - Discharge Plan Home Medications: Home Meds Lisinopril/Hydrochlorothiazide [Lisinopril-Hctz 20-25 mg Tab] 1 each PO DAILY # 30 tablet 01/21/17 [Rx] - Discharge Summary/Plan Comment DC Time >30 min.: No - General Info Date of Service: 10/04/17 Functional Status: Reports: Pain Controlled, Tolerating Diet, Ambulating, Urinating - Review of Systems General: Reports: No Symptoms HEENT: Reports: No Symptoms Pulmonary: Reports: No Symptoms Cardiovascular: Reports: No Symptoms Gastrointestinal: Reports: No Symptoms Genitourinary: Reports: No Symptoms Musculoskeletal: Reports: No Symptoms Skin: Reports: No Symptoms Neurological: Reports: No Symptoms Psychiatric: Reports: No Symptoms - Patient Data Vitals - Most Recent: Last Vital Signs Temp 97.4 F 10/04/17 07:53 Pulse 86 10/04/17 07:53 Resp 20 10/04/17 07:53 BP 122/65 10/04/17 07:53 Pulse Ox 99 10/04/17 07:53 Weight - Most Recent: 176 lb 6.4 oz I&O - Last 24 hours: Intake & Output 10/03/17 10/04/17 10/04/17 22:59 06:59 14:59 Intake Total 992 400 Balance 992 400 Lab Results - Last 24 hrs: Laboratory Results - last 24 hr 10/04/17 10/04/17 10/04/17 Range/Units 07:37 07:37 09:24 WBC 5.0 (5.0-10.0) 10^3/uL RBC 3.82 L (4.00-5.50) 10^6/uL Hgb 11.1 L (12.0-16.0) g/dL Hct 32.2 L (37.0-47.0) % MCV 84.3 (82.0-94.0) fL MCH 29.1 (27.0-32.0) pg MCHC 34.5 (33.0-38.0) g/dL RDW Coeff of Lulu 13.7 (11.0-15.0) % Plt Count 191 (150-400) 10^3/uL Neut % (Auto) 60.1 (35-85) % Lymph % (Auto) 25.8 (10-55) % [place] % (Auto) 11.9 (0-16) % Eos % (Auto) 1.8 (0-5) % Baso % (Auto) 0.4 (0-3) % Neut # (Auto) 3.03 (1.80-7.00) 10^3/uL Lymph # (Auto) 1.30 (1.00-4.80) 10^3/uL [place] # (Auto) 0.60 (0.00-0.80) 10^3/uL Eos # (Auto) 0.09 (0.00-0.45) 10^3/uL Baso # (Auto) 0.02 10^3/uL Sodium 139 (136-145) mEq/L Potassium 3.4 L (3.5-5.0) mEq/L Chloride 106 (98-106) mEq/L Carbon Dioxide 26 (21-32) mmol/L BUN 10 (7-18) mg/dL Creatinine 0.6 (0.6-1.0) mg/dL Est Cr Clr Drug Dosing 82.48 mL/min Estimated GFR (MDRD) > 60 (>=60) mL/min Glucose 124 H (75-99) mg/dL Calcium 8.0 L (8.4-10.1) mg/dL C-Reactive Protein 10.7 H (0.2-0.8) mg/dL Urine Color Yellow (YELLOW) Urine Appearance Clear (CLEAR) Urine pH 5.5 (4.5-8.0) Ur Specific [place] <= 1.005 (1.003-1.020) Urine Protein Negative (NEGATIVE) mg/dL Urine Glucose (UA) Negative (NEGATIVE) mg/dL Urine Ketones Negative (NEGATIVE) mg/dL Urine Occult Blood Trace-intact H (NEGATIVE) Urine Nitrite Negative (NEGATIVE) Urine Bilirubin Negative (NEGATIVE) Urine Urobilinogen 0.2 (0.2-1.0) EU/dL Ur Leukocyte Esterase Negative (NEGATIVE) Urine RBC Not seen (0-5) /HPF Urine WBC Not seen (0-5) /HPF TABITHA Results - Last 24 hrs: Microbiology 10/02/17 14:38 Urine Culture - Final Urine, Voided Escherichia Coli 10/02/17 15:11 Aerobic Blood Culture - Preliminary Blood NO GROWTH AFTER 1 DAY Anaerobic Blood Culture - Preliminary NO GROWTH AFTER 1 DAY Med Orders - Current: Current Medications Acetaminophen (Tylenol) 650 mg PO Q4H PRN PRN Reason: Pain (Mild 1-3)/fever Last Admin: 10/03/17 17:25 Dose: 650 mg Ceftriaxone Sodium (Rocephin) 1 gm IVPUSH Q24H [facility] Last Admin: 10/04/17 10:01 Dose: 1 gm Enoxaparin Sodium (Lovenox) 40 mg SUBCUT BEDTIME [facility] Last Admin: 10/03/17 20:48 Dose: 40 mg Hydrochlorothiazide (Hydrochlorothiazide) 25 mg PO DAILY [facility] Last Admin: 10/04/17 07:52 Dose: 25 mg Sodium Chloride (Normal Saline) 1,000 mls @ 100 mls/hr IV ASDIRECTED [facility] Last Admin: 10/04/17 03:55 Dose: 100 mls/hr Ibuprofen (Motrin) 400 mg PO Q6H PRN PRN Reason: Pain (mild 1-3) Last Admin: 10/04/17 05:09 Dose: 400 mg Lisinopril (Prinivil) 20 mg PO DAILY [facility] Last Admin: 10/04/17 07:51 Dose: 20 mg Ondansetron HCl (Zofran) 4 mg IV Q4H PRN PRN Reason: Nausea/Vomiting Discontinued Medications Potassium Chloride/Dextrose/Sod Cl (D5 1/2 Ns W/ 20 Meq/L Kcl) 1,000 mls @ 125 mls/hr IV ASDIRECTED [facility] Last Admin: 10/03/17 09:25 Dose: 125 mls/hr - Exam General: Reports: Alert, Oriented, Cooperative, No Acute Distress Neck: Reports: Supple Lungs: Reports: Clear to Auscultation, Normal Respiratory Effort Cardiovascular: Reports: Regular Rate, Regular Rhythm GI/Abdominal Exam: Normal Bowel Sounds, Soft, Non-Tender, No Organomegaly, No Distention, No Abnormal Bruit, No Mass, Pelvis Stable (Female) Exam: Deferred Rectal (Female) Exam: Deferred Back Exam: Reports: Normal Inspection, Full Range of Motion. Denies: CVA Tenderness (L), CVA Tenderness (R) Extremities: Normal Inspection, Normal Range of Motion, Non-Tender, No Pedal Edema, Normal Capillary Refill Skin: Reports: Warm, Dry, Intact Neurological: Reports: No New Focal Deficit Psy/Mental Status: Reports: Alert, Normal Affect, Normal Mood
== END 2017-10-04 10:50 | disposition home or self-care (01) | DRG 463 ==
LOC: CC.FCMC 14:18 → CC.MS 14:18 → UNDOADMIN 16:16 → CC.MS 16:54 → UNDODISIN 10-04 10:50
PROVIDERS: ADMIT Physician Assistant Medical; ATTEND Family Medicine
DX: N39.0 Urinary tract infection, site not specified (principal); E87.6 Hypokalemia; R51 Headache; M50.30 Other cervical disc degeneration, unspecified cervical region; H81.399 Other peripheral vertigo, unspecified ear; Z90.710 Acquired absence of both cervix and uterus; Z79.899 Other long term (current) drug therapy
CPT/HCPCS: 36415; 80048; 80053; 81001; 83605; 85025; 85651; 86140; 87040; 87086; 87088; 87186; A9270-GY; J0696; J1650; J3480; J7030

== ENCOUNTER 2017-10-21 13:55 | Inpatient (IN) | payer BC ==
[2017-10-21] MEDS ORDERED: Ondansetron 4 MG Tab.DIS PO PRN (14:04)
[2017-10-21] MEDS ORDERED: Temazepam 15 MG Cap PO PRN (14:04)
[2017-10-21] MEDS ORDERED: Sodium Chloride 0.9% 1,000 ML ONE (14:13)
[2017-10-21] MEDS ORDERED: Sodium Chloride 0.9% 1,000 ML IV SCH (14:15)
[2017-10-21 14:33] LABS: CHLORIDE,CL 98 mEq/L (98-106); SODIUM,NA 135 mEq/L (136-145)
[2017-10-21] MEDS: cefTRIAXone 1 GM Vial IVPUSH SCH (14:49)
[2017-10-21] MEDS ORDERED: Sodium Chloride 0.9% 1,000 ML IV ONE (15:06)
[2017-10-21] MEDS ORDERED: Enoxaparin 40 MG/0.4 ML Syringe SUBCUT SCH (16:00)
[2017-10-21] MEDS: Sodium Chloride 0.9% 1,000 ML IV SCH (16:17)
[2017-10-21] MEDS: Ibuprofen 200 MG Tab PO PRN (18:38)
[2017-10-21] MEDS: Acetaminophen 325 MG Tab PO PRN (19:58)
[2017-10-21] MEDS: Lisinopril 20 MG Tab PO SCH (19:59)
[2017-10-21] MEDS: Hydrochlorothiazide 25 MG Tab PO SCH (19:59)
[2017-10-22] MEDS: Sodium Chloride 0.9% 1,000 ML IV SCH ×3 (00:41→18:43)
[2017-10-22] MEDS: Acetaminophen 325 MG Tab PO PRN ×4 (01:43→20:06)
[2017-10-22 08:50] LABS: CHLORIDE,CL 102 mEq/L (98-106); SODIUM,NA 137 mEq/L (136-145)
[2017-10-22] MEDS ORDERED: Albuterol/Ipratropium 3.0-0.5 MG/3 ML Neb Soln NEB PRN (09:14)
[2017-10-22] MEDS: Ibuprofen 200 MG Tab PO PRN ×2 (10:36→17:47)
[2017-10-22] MEDS: cefTRIAXone 1 GM Vial IVPUSH SCH (11:54)
[2017-10-22] MEDS: Enoxaparin 40 MG/0.4 ML Syringe SUBCUT SCH (11:54)
[2017-10-22] MEDS ORDERED: Levofloxacin/Dextrose 5%-Water 500 MG in Premix Bag 1 BAG IV SCH (15:45)
--- NOTE | 2017-10-22 15:50 | PCM.PN ---
- General Info Date of Service: 10/22/17 Admission Dx/Problem (Free Text): UTI with sepsis Functional Status: Reports: Pain Controlled - Review of Systems General: Reports: Fatigue, Malaise, Chills. Denies: Fever, Weakness HEENT: Denies: Ear Pain, Sore Throat, Rhinitis Pulmonary: Reports: Cough. Denies: Shortness of Breath, Wheezing Cardiovascular: Denies: Chest Pain, Edema, Lightheadedness Gastrointestinal: Denies: Abdominal Pain, Decreased Appetite, Diarrhea, Nausea, Vomiting Genitourinary: Reports: No Symptoms Musculoskeletal: Reports: No Symptoms Skin: Reports: No Symptoms Neurological: Reports: Dizziness - Patient Data Vitals - Most Recent: Last Vital Signs Temp 103.3 F H 10/22/17 12:00 Pulse 101 H 10/22/17 12:00 Resp 19 10/22/17 12:00 BP 117/61 10/22/17 12:00 Pulse Ox 96 10/22/17 12:00 Weight - Most Recent: 182 lb 3.2 oz I&O - Last 24 Hours: Intake & Output 10/22/17 10/22/17 10/22/17 06:59 14:59 22:59 Intake Total 1000 1671 Balance 1000 1671 Lab Results Last 24 Hours: Laboratory Results - last 24 hr 10/22/17 10/22/17 Range/Units 08:36 08:36 WBC 12.9 H (5.0-10.0) 10^3/uL RBC 3.70 L (4.00-5.50) 10^6/uL Hgb 10.7 L (12.0-16.0) g/dL Hct 31.7 L (37.0-47.0) % MCV 85.7 (82.0-94.0) fL MCH 28.9 (27.0-32.0) pg MCHC 33.8 (33.0-38.0) g/dL RDW Coeff of Lulu 13.7 (11.0-15.0) % Plt Count 193 (150-400) 10^3/uL Neut % (Auto) 80.5 (35-85) % Lymph % (Auto) 10.2 (10-55) % [place] % (Auto) 9.0 (0-16) % Eos % (Auto) 0.2 (0-5) % Baso % (Auto) 0.1 (0-3) % Neut # (Auto) 10.38 H (1.80-7.00) 10^3/uL Lymph # (Auto) 1.31 (1.00-4.80) 10^3/uL [place] # (Auto) 1.16 H (0.00-0.80) 10^3/uL Eos # (Auto) 0.02 (0.00-0.45) 10^3/uL Baso # (Auto) 0.01 10^3/uL Sodium 137 (136-145) mEq/L Potassium 3.2 L (3.5-5.0) mEq/L Chloride 102 (98-106) mEq/L Carbon Dioxide 25 (21-32) mmol/L BUN 9 (7-18) mg/dL Creatinine 0.6 (0.6-1.0) mg/dL Est Cr Clr Drug Dosing 82.48 mL/min Estimated GFR (MDRD) > 60 (>=60) mL/min Glucose 137 H (75-99) mg/dL Calcium 8.4 (8.4-10.1) mg/dL C-Reactive Protein 32.2 H (0.2-0.8) mg/dL Ace Results Last 24 Hours: Microbiology 10/21/17 14:13 Aerobic Blood Culture - Preliminary Blood - Venous - Lab Draw NO GROWTH AFTER 1 DAY Anaerobic Blood Culture - Preliminary Gram Negative Rods 10/21/17 14:13 Aerobic Blood Culture - Preliminary Blood - Venous NO GROWTH AFTER 1 DAY Anaerobic Blood Culture - Preliminary NO GROWTH AFTER 1 DAY 10/21/17 15:01 Urine Culture - Preliminary Urine, Clean Catch Gram Negative Rods 10/22/17 08:50 Influenza Type A Antigen Screen - Final Nasopharyngeal Swab NEGATIVE INFLUENZA A VIRUS AG Influenza Type B Antigen Screen - Final NEGATIVE INFLUENZA B VIRUS AG Med Orders - Current: Current Medications Acetaminophen (Tylenol) 650 mg PO Q4H PRN PRN Reason: Pain (Mild 1-3)/fever Last Admin: 10/22/17 14:11 Dose: 650 mg Albuterol/Ipratropium (Duoneb 3.0-0.5 Mg/3 Ml) 3 ml NEB Q4H PRN PRN Reason: Dyspnea Ceftriaxone Sodium (Rocephin) 1 gm IVPUSH DAILY@1200 [facility] Last Admin: 05/31/18 11:54 Dose: 1 gm Enoxaparin Sodium (Lovenox) 40 mg SUBCUT DAILY@1200 [facility] Last Admin: 10/22/17 11:54 Dose: 40 mg Hydrochlorothiazide (Hydrochlorothiazide) 25 mg PO DAILY@1999 [facility] Last Admin: 10/21/17 19:59 Dose: 25 mg Sodium Chloride (Normal Saline) 1,000 mls @ 125 mls/hr IV ASDIRECTED [facility] Last Admin: 10/22/17 14:12 Dose: 125 mls/hr Levofloxacin/Dextrose 500 mg/ (Premix) 100 mls @ 100 mls/hr IV Q24H [facility] Ibuprofen (Motrin) 600 mg PO Q6H PRN PRN Reason: Fever Last Admin: 10/22/17 10:36 Dose: 600 mg Lisinopril (Prinivil) 20 mg PO DAILY@1999 [facility] Last Admin: 10/21/17 19:59 Dose: 20 mg Ondansetron HCl (Zofran Odt) 8 mg PO Q6H PRN PRN Reason: nausea, able to take PO Temazepam (Restoril) 15 mg PO BEDTIME PRN PRN Reason: Sleep Discontinued Medications Enoxaparin Sodium (Lovenox) 40 mg SUBCUT DAILY@1600 [facility] Last Admin: 10/21/17 16:17 Dose: 40 mg Sodium Chloride (Normal Saline) 1,000 mls @ 500 mls/hr IV .BOLUS [facility] Last Admin: 10/21/17 14:30 Dose: 500 mls/hr Sodium Chloride (Normal Saline) Confirm Administered Dose 1,000 mls @ as directed .ROUTE .STK-MED ONE Stop: 10/21/17 14:14 Last Admin: 10/21/17 14:28 Dose: Not Given Sodium Chloride (Normal Saline) 1,000 mls @ 500 mls/hr IV ONETIME ONE Stop: 10/21/17 15:59 Last Admin: 10/21/17 15:52 Dose: Not Given - Exam General: Alert, Oriented HEENT: Mucous Membr. Moist/[place] Neck: Supple Lungs: Clear to Auscultation, Normal Respiratory Effort Cardiovascular: Regular Rate, Regular Rhythm GI/Abdominal Exam: Normal Bowel Sounds, Soft, Non-Tender Extremities: Normal Inspection, No Pedal Edema Skin: Warm, Dry Neurological: No New Focal Deficit - Problem List & Annotations (1) UTI (urinary tract infection) SNOMED Code(s): 83669773 Code(s): N39.0 - URINARY TRACT INFECTION, SITE NOT SPECIFIED Status: Acute Priority: High Current Visit: Yes Qualifiers: Urinary tract infection type: acute cystitis Hematuria presence: without hematuria Qualified Code(s): N30.00 - Acute cystitis without hematuria (2) Sepsis SNOMED Code(s): 67761004 Code(s): A41.9 - SEPSIS, UNSPECIFIED ORGANISM Status: Acute Priority: High Current Visit: Yes Qualifiers: Sepsis type: sepsis due to unspecified organism Qualified Code(s): A41.9 - Sepsis, unspecified organism (3) Vertigo SNOMED Code(s): 931855261 Code(s): R42 - DIZZINESS AND GIDDINESS Status: Chronic Priority: Medium Current Visit: Yes - Problem List Review Problem List Initiated/Reviewed/Updated: Yes - My Orders Last 24 Hours: My Active Orders 10/21/17 18:30 Ibuprofen [Motrin] 600 mg PO Q6H PRN 10/22/17 09:14 RT Aerosol Therapy [RC] .PRN Albuterol/Ipratropium [DuoNeb 3.0-0.5 MG/3 ML] 3 ml NEB Q4H PRN 10/22/17 15:45 Levofloxacin/Dextrose 5%-Water [Levaquin in D5W 500 MG/100 ML] 500 mg Premix Bag 1 bag IV Q24H 10/23/17 05:11 BASIC METABOLIC PANEL,BMP [CHEM] AM C-REACTIVE PROTEIN [CHEM] AM CBC WITH AUTO DIFF [HEME] AM - Assessment Assessment:: UTI with sepsis - Plan Plan:: Patient does admit that she is feeling better today. States felt better yesterday after getting IV fluids. Does get intermittent chills when running a fever but overall is better. She does admit that she has a frequent cough and it is more frequent and persistent if lying flat. She denies production with the cough. No shortness of breath or wheezing. Does not have burning with urination. Relates that with the last hospitalization, she had thigh pain with the UTI but does not have that with this occurrence. Patient continues to spike fevers up to 103. Blood pressures are stable. Labs show slight improvement of WBC to 12.9, spike of CRP noted at 32.2. Initial urine culture as well as 1/4 blood cultures show gram negative rods. Influenza screening negative today. Will continue with IV fluids. Add Levaquin x1 dose today until blood and urine cultures completed tomorrow. Inappropriate for discharge.
[2017-10-22] MEDS ORDERED: Levofloxacin/Dextrose 5%-Water 500 MG in Premix Bag 1 BAG IV ONE (16:00)
[2017-10-22] MEDS: Codeine/Promethazine 10-6.25 MG/5 ML Syrup 5 ML UD Cup PO PRN ×2 (16:38→22:49)
[2017-10-22] MEDS: Lisinopril 20 MG Tab PO SCH (20:05)
[2017-10-22] MEDS: Hydrochlorothiazide 25 MG Tab PO SCH (20:06)
[2017-10-23] MEDS: Acetaminophen 325 MG Tab PO PRN ×3 (00:10→14:25)
[2017-10-23] MEDS: Sodium Chloride 0.9% 1,000 ML IV SCH (02:30)
[2017-10-23 07:48] LABS: CHLORIDE,CL 106 mEq/L (98-106); SODIUM,NA 140 mEq/L (136-145)
[2017-10-23] MEDS ORDERED: Potassium Chloride 10 MEQ Tab.ER PO SCH (08:30)
--- NOTE | 2017-10-23 09:05 | PCM.PN ---
- General Info Date of Service: 10/23/17 Admission Dx/Problem (Free Text): UTI with sepsis Functional Status: Reports: Pain Controlled, Tolerating Diet, Ambulating - Review of Systems General: Reports: Fever, Weakness, Fatigue, Malaise HEENT: Reports: No Symptoms Pulmonary: Reports: Cough. Denies: Shortness of Breath, Sputum, Wheezing Cardiovascular: Denies: Chest Pain, Edema, Lightheadedness Gastrointestinal: Denies: Abdominal Pain, Nausea, Vomiting Genitourinary: Reports: No Symptoms Musculoskeletal: Reports: No Symptoms Skin: Reports: No Symptoms Neurological: Reports: No Symptoms - Patient Data Vitals - Most Recent: Last Vital Signs Temp 99.0 F 10/23/17 07:22 Pulse 85 10/23/17 07:22 Resp 20 10/23/17 07:22 BP 115/69 10/23/17 07:22 Pulse Ox 100 10/23/17 07:22 Weight - Most Recent: 185 lb 1.6 oz I&O - Last 24 Hours: Intake & Output 10/22/17 10/23/17 10/23/17 22:59 06:59 14:59 Intake Total 973 Balance 973 Lab Results Last 24 Hours: Laboratory Results - last 24 hr 10/22/17 10/23/17 10/23/17 Range/Units 08:36 07:05 07:05 WBC 8.5 (5.0-10.0) 10^3/uL RBC 3.36 L (4.00-5.50) 10^6/uL Hgb 9.7 L (12.0-16.0) g/dL Hct 29.0 L (37.0-47.0) % MCV 86.3 (82.0-94.0) fL MCH 28.9 (27.0-32.0) pg MCHC 33.4 (33.0-38.0) g/dL RDW Coeff of Lulu 13.8 (11.0-15.0) % Plt Count 195 (150-400) 10^3/uL Neut % (Auto) 68.9 (35-85) % Lymph % (Auto) 18.2 (10-55) % [place] % (Auto) 11.5 (0-16) % Eos % (Auto) 1.3 (0-5) % Baso % (Auto) 0.1 (0-3) % Neut # (Auto) 5.82 (1.80-7.00) 10^3/uL Lymph # (Auto) 1.54 (1.00-4.80) 10^3/uL [place] # (Auto) 0.97 H (0.00-0.80) 10^3/uL Eos # (Auto) 0.11 (0.00-0.45) 10^3/uL Baso # (Auto) 0.01 10^3/uL Sodium 137 140 (136-145) mEq/L Potassium 3.2 L 3.1 L (3.5-5.0) mEq/L Chloride 102 106 (98-106) mEq/L Carbon Dioxide 25 25 (21-32) mmol/L BUN 9 8 (7-18) mg/dL Creatinine 0.6 0.7 (0.6-1.0) mg/dL Est Cr Clr Drug Dosing 82.48 70.70 mL/min Estimated GFR (MDRD) > 60 > 60 (>=60) mL/min Glucose 137 H 127 H (75-99) mg/dL Calcium 8.4 8.3 L (8.4-10.1) mg/dL C-Reactive Protein 32.2 H 28.2 H (0.2-0.8) mg/dL Ace Results Last 24 Hours: Microbiology 10/21/17 14:13 Aerobic Blood Culture - Preliminary Blood - Venous - Lab Draw NO GROWTH AFTER 1 DAY Anaerobic Blood Culture - Preliminary Gram Negative Rods 10/21/17 14:13 Aerobic Blood Culture - Preliminary Blood - Venous NO GROWTH AFTER 1 DAY Anaerobic Blood Culture - Preliminary NO GROWTH AFTER 1 DAY 10/21/17 15:01 Urine Culture - Preliminary Urine, Clean Catch Gram Negative Rods 10/22/17 08:50 Influenza Type A Antigen Screen - Final Nasopharyngeal Swab NEGATIVE INFLUENZA A VIRUS AG Influenza Type B Antigen Screen - Final NEGATIVE INFLUENZA B VIRUS AG Med Orders - Current: Current Medications Acetaminophen (Tylenol) 650 mg PO Q4H PRN PRN Reason: Pain (Mild 1-3)/fever Last Admin: 10/23/17 07:40 Dose: 650 mg Albuterol/Ipratropium (Duoneb 3.0-0.5 Mg/3 Ml) 3 ml NEB Q4H PRN PRN Reason: Dyspnea Ceftriaxone Sodium (Rocephin) 1 gm IVPUSH DAILY@1200 [facility] Last Admin: 10/22/17 11:54 Dose: 1 gm Enoxaparin Sodium (Lovenox) 40 mg SUBCUT DAILY@1200 [facility] Last Admin: 10/22/17 11:54 Dose: 40 mg Hydrochlorothiazide (Hydrochlorothiazide) 25 mg PO DAILY@2000 [facility] Last Admin: 10/22/17 20:06 Dose: 25 mg Sodium Chloride (Normal Saline) 1,000 mls @ 125 mls/hr IV ASDIRECTED [facility] Last Admin: 10/23/17 02:30 Dose: 125 mls/hr Ibuprofen (Motrin) 600 mg PO Q6H PRN PRN Reason: Fever Last Admin: 10/22/17 17:47 Dose: 600 mg Lisinopril (Prinivil) 20 mg PO DAILY@1999 [facility] Last Admin: 10/22/17 20:05 Dose: 20 mg Ondansetron HCl (Zofran Odt) 8 mg PO Q6H PRN PRN Reason: nausea, able to take PO Potassium Chloride (Klor-Con 10) 20 meq PO DAILY [facility] Promethazine HCl/Codeine (Phenergan With Codeine) 5 - 10 ml PO Q6H PRN PRN Reason: Cough Last Admin: 10/22/17 22:49 Dose: 10 ml Temazepam (Restoril) 15 mg PO BEDTIME PRN PRN Reason: Sleep Discontinued Medications Enoxaparin Sodium (Lovenox) 40 mg SUBCUT DAILY@1600 [facility] Last Admin: 10/21/17 16:17 Dose: 40 mg Sodium Chloride (Normal Saline) 1,000 mls @ 500 mls/hr IV .BOLUS [facility] Last Admin: 10/21/17 14:30 Dose: 500 mls/hr Sodium Chloride (Normal Saline) Confirm Administered Dose 1,000 mls @ as directed .ROUTE .STK-MED ONE Stop: 10/21/17 14:14 Last Admin: 10/21/17 14:28 Dose: Not Given Sodium Chloride (Normal Saline) 1,000 mls @ 500 mls/hr IV ONETIME ONE Stop: 10/21/17 15:59 Last Admin: 10/21/17 15:52 Dose: Not Given Levofloxacin/Dextrose 500 mg/ (Premix) 100 mls @ 100 mls/hr IV Q24H [facility] Last Admin: 10/22/17 16:07 Dose: Not Given Levofloxacin/Dextrose 500 mg/ (Premix) 100 mls @ 100 mls/hr IV ONETIME ONE Stop: 10/22/17 16:59 Last Admin: 10/22/17 16:03 Dose: 100 mls/hr - Exam General: Alert, Oriented HEENT: Mucous Membr. Moist/[place] Neck: Supple Lungs: Clear to Auscultation, Normal Respiratory Effort Cardiovascular: Regular Rate, Regular Rhythm GI/Abdominal Exam: Normal Bowel Sounds, Soft, Non-Tender Extremities: Normal Inspection, No Pedal Edema Skin: Warm, Dry Neurological: No New Focal Deficit - Problem List & Annotations (1) UTI (urinary tract infection) SNOMED Code(s): 25840876 Code(s): N39.0 - URINARY TRACT INFECTION, SITE NOT SPECIFIED Status: Acute Priority: High Current Visit: Yes Qualifiers: Urinary tract infection type: acute cystitis Hematuria presence: without hematuria Qualified Code(s): N30.00 - Acute cystitis without hematuria (2) Sepsis SNOMED Code(s): 62983875 Code(s): A41.9 - SEPSIS, UNSPECIFIED ORGANISM Status: Acute Priority: High Current Visit: Yes Qualifiers: Sepsis type: sepsis due to unspecified organism Qualified Code(s): A41.9 - Sepsis, unspecified organism (3) Vertigo SNOMED Code(s): 503454405 Code(s): R42 - DIZZINESS AND GIDDINESS Status: Chronic Priority: Medium Current Visit: Yes - Problem List Review Problem List Initiated/Reviewed/Updated: Yes - My Orders Last 24 Hours: My Active Orders 10/22/17 09:14 RT Aerosol Therapy [RC] .PRN Albuterol/Ipratropium [DuoNeb 3.0-0.5 MG/3 ML] 3 ml NEB Q4H PRN 10/22/17 16:06 Codeine/Promethazine [Phenergan with Codeine] 5 - 10 ml PO Q6H PRN 10/23/17 08:30 Potassium Chloride [Klor-Con 10] 20 meq PO DAILY - Assessment Assessment:: UTI with sepsis - Plan Plan:: Patient does admit that she is feeling better today. States felt better yesterday after getting IV fluids. Does get intermittent chills when running a fever but overall is better. She does admit that she has a frequent cough and it is more frequent and persistent if lying flat. She denies production with the cough. No shortness of breath or wheezing. Does not have burning with urination. Relates that with the last hospitalization, she had thigh pain with the UTI but does not have that with this occurrence. Patient continues to spike fevers up to 103. Blood pressures are stable. Labs show slight improvement of WBC to 12.9, spike of CRP noted at 32.2. Initial urine culture as well as 1/4 blood cultures show gram negative rods. Influenza screening negative today. Will continue with IV fluids. Add Levaquin x1 dose today until blood and urine cultures completed tomorrow. Inappropriate for discharge. 10-23-2017 Patient is feeling good. Did spike a fever of 103 yesterday, has been afebrile since then. She admits the cough medicine helped tremendously and she was able to sleep last night. Has been ambulating in the halls and doing well. Denies any abdominal pain. Labs are improving, WBC now normal. CRP down to 28.2 today. Potassium is down to 3.1. Awaiting full sensitivities for urine and blood cultures, expect final report today. Will start potassium oral replacement today. Continue with Rocephin until full sensitivities noted. Possible discharge home tomorrow.
[2017-10-23] MEDS: cefTRIAXone 1 GM Vial IVPUSH SCH (11:58)
[2017-10-23] MEDS: Enoxaparin 40 MG/0.4 ML Syringe SUBCUT SCH (11:58)
[2017-10-23] MEDS: Ibuprofen 200 MG Tab PO PRN ×2 (13:03→17:47)
[2017-10-23] MEDS: Codeine/Promethazine 10-6.25 MG/5 ML Syrup 5 ML UD Cup PO PRN ×2 (13:08→14:27)
[2017-10-23] MEDS ORDERED: Levofloxacin/Dextrose 5%-Water 500 MG in Premix Bag 1 BAG IV SCH (14:15)
[2017-10-23 16:03] VITALS: BP 133/68
[2017-10-23] MEDS ORDERED: Iopamidol 612 MG/ML 100 ML Bottle IVPUSH ONE (17:30)
--- NOTE | 2017-10-23 17:39 | PCM.DCSUM1 ---
Discharge Summary - Hospital Course HPI Initial Comments: Sharlene is a 62 year old female who was admitted to the hospital on 10/21/2017 for cough, pyelonephritis, and sepsis. She had also been hospitalized 3 weeks prior with pyelonephritis. Patient improved on antibiotics and was discharged home on oral antibiotics. Patient reports she was feeling better, but then got the chills and fever two days prior to admission. Patient had fever of 104 on admission. Both urine and blood cultures grew e coli. Patient was initially started on Rocephin. Both cultures sensitive to Rocephin. She did also have one dose of Levaquin during stay. Throughout hospital stay, patient WBC did trend down. WBC was 14.2 on admission and 8.5 at time of discharge. CRP did increase throughout stay. CRP was 10.5 on admission, did get as high as 32.2. and was 28.2 on discharge. She did have some hypokalemia, K 3.1 on discharge. This was replaced with IV KCL. Patient continued to have fevers throughout stay. Temperature was 101 deg F at time of discharge. Renal US was completed on 10/22/2017 and read as normal. Patient began feeling more and more bloated in her abdomen with some abdominal discomfort and continued to have fever, so CT abdomen pelvis was obtained prior to discharge on 10/23/2017. This did reveal bilateral pyelonephritis and perinephric inflammatory changes, as well as a 6 mm nonobstructing stone in the left lower pole kidney. This stone had increased in size from an apparent CT done in 2008. Patient was feeling very poor and requested transfer to higher level of care for urology consultation. Patient will be transferred to [facility]. - Discharge Data Discharge Date: 10/23/17 Discharge Disposition: DC/Tfer to Acute Hospital 02 Condition: Good - Discharge Diagnosis/Problem(s) (1) Sepsis SNOMED Code(s): 31669171 ICD Code: A41.9 - SEPSIS, UNSPECIFIED ORGANISM Status: Acute Priority: High Qualifiers: Sepsis type: Escherichia coli Qualified Code(s): A41.51 - Sepsis due to Escherichia coli [E. coli] (2) UTI (urinary tract infection) SNOMED Code(s): 33373433 ICD Code: N39.0 - URINARY TRACT INFECTION, SITE NOT SPECIFIED Status: Acute Priority: High Qualifiers: Urinary tract infection type: acute pyelonephritis Qualified Code(s): N10 - Acute pyelonephritis (3) Vertigo SNOMED Code(s): 683129243 ICD Code: R42 - DIZZINESS AND GIDDINESS Status: Chronic Priority: Medium (4) Hypertension SNOMED Code(s): 10573261 ICD Code: I10 - ESSENTIAL (PRIMARY) HYPERTENSION Status: Chronic Qualifiers: Hypertension type: essential hypertension Qualified Code(s): I10 - Essential (primary) hypertension (5) Hypokalemia SNOMED Code(s): 52032950 ICD Code: E87.6 - HYPOKALEMIA Status: Acute - Patient Instructions Diet: NPO Activity: As Tolerated - Discharge Plan Home Medications: Home Meds Lisinopril/Hydrochlorothiazide [Lisinopril-Hctz 20-25 mg Tab] 1 each PO DAILY # 30 tablet 01/21/17 [Rx] - Discharge Summary/Plan Comment DC Time >30 min.: Yes (assessment, arranging transfer, documentation) - General Info Date of Service: 10/23/17 Admission Dx/Problem (Free Text: UTI with sepsis Functional Status: Reports: Pain Controlled, Tolerating Diet, Ambulating, Urinating, New Symptoms (abdominal bloating) - Review of Systems General: Reports: Fever, Weakness, Fatigue, Chills. Denies: Appetite Pulmonary: Reports: Cough. Denies: Shortness of Breath, Pleuritic Chest Pain, Sputum, Hemoptysis, Wheezing Cardiovascular: Reports: No Symptoms Gastrointestinal: Reports: Abdominal Pain, Decreased Appetite, Diarrhea, Other ( bloating). Denies: Nausea, Vomiting Genitourinary: Denies: Dysuria, Frequency, Urgency, Hematuria, Flank Pain Musculoskeletal: Reports: Back Pain Skin: Reports: No Symptoms Neurological: Reports: Weakness Psychiatric: Reports: No Symptoms - Patient Data Vitals - Most Recent: Last Vital Signs Temp 100.5 F 10/23/17 16:00 Pulse 89 10/23/17 16:00 Resp 20 10/23/17 16:00 BP 133/68 10/23/17 16:00 Pulse Ox 98 10/23/17 16:00 Weight - Most Recent: 185 lb 1.6 oz I&O - Last 24 hours: Intake & Output 10/23/17 10/23/17 10/23/17 06:59 14:59 22:59 Intake Total 973 Balance 973 Lab Results - Last 24 hrs: Laboratory Results - last 24 hr 10/23/17 10/23/17 Range/Units 07:05 07:05 WBC 8.5 (5.0-10.0) 10^3/uL RBC 3.36 L (4.00-5.50) 10^6/uL Hgb 9.7 L (12.0-16.0) g/dL Hct 29.0 L (37.0-47.0) % MCV 86.3 (82.0-94.0) fL MCH 28.9 (27.0-32.0) pg MCHC 33.4 (33.0-38.0) g/dL RDW Coeff of Lulu 13.8 (11.0-15.0) % Plt Count 195 (150-400) 10^3/uL Neut % (Auto) 68.9 (35-85) % Lymph % (Auto) 18.2 (10-55) % Rich % (Auto) 11.5 (0-16) % Eos % (Auto) 1.3 (0-5) % Baso % (Auto) 0.1 (0-3) % Neut # (Auto) 5.82 (1.80-7.00) 10^3/uL Lymph # (Auto) 1.54 (1.00-4.80) 10^3/uL Rich # (Auto) 0.97 H (0.00-0.80) 10^3/uL Eos # (Auto) 0.11 (0.00-0.45) 10^3/uL Baso # (Auto) 0.01 10^3/uL Sodium 140 (136-145) mEq/L Potassium 3.1 L (3.5-5.0) mEq/L Chloride 106 (98-106) mEq/L Carbon Dioxide 25 (21-32) mmol/L BUN 8 (7-18) mg/dL Creatinine 0.7 (0.6-1.0) mg/dL Est Cr Clr Drug Dosing 70.70 mL/min Estimated GFR (MDRD) > 60 (>=60) mL/min Glucose 127 H (75-99) mg/dL Calcium 8.3 L (8.4-10.1) mg/dL C-Reactive Protein 28.2 H (0.2-0.8) mg/dL TABITHA Results - Last 24 hrs: Microbiology 10/21/17 14:13 Aerobic Blood Culture - Preliminary Blood - Venous - Lab Draw NO GROWTH AFTER 2 DAYS Anaerobic Blood Culture - Final Escherichia Coli 10/21/17 14:13 Aerobic Blood Culture - Preliminary Blood - Venous NO GROWTH AFTER 2 DAYS Anaerobic Blood Culture - Preliminary NO GROWTH AFTER 2 DAYS 10/21/17 15:01 Urine Culture - Final Urine, Clean Catch Escherichia Coli Med Orders - Current: Current Medications Acetaminophen (Tylenol) 650 mg PO Q4H PRN PRN Reason: Pain (Mild 1-3)/fever Last Admin: 10/23/17 14:25 Dose: 650 mg Albuterol/Ipratropium (Duoneb 3.0-0.5 Mg/3 Ml) 3 ml NEB Q4H PRN PRN Reason: Dyspnea Ceftriaxone Sodium (Rocephin) 1 gm IVPUSH DAILY@1199 [facility] Last Admin: 10/23/17 11:58 Dose: 1 gm Enoxaparin Sodium (Lovenox) 40 mg SUBCUT DAILY@1199 [facility] Last Admin: 10/23/17 11:58 Dose: 40 mg Hydrochlorothiazide (Hydrochlorothiazide) 25 mg PO DAILY@1999 [facility] Last Admin: 10/22/17 20:06 Dose: 25 mg Levofloxacin/Dextrose 500 mg/ (Premix) 100 mls @ 100 mls/hr IV DAILY@1199 [facility] Last Admin: 10/23/17 14:25 Dose: 100 mls/hr Potassium Chloride/Sodium Chloride (Normal Saline With 20 Meq Kcl) 1,000 mls @ 100 mls/hr IV ASDIRECTED [facility] Ibuprofen (Motrin) 600 mg PO Q6H PRN PRN Reason: Fever Last Admin: 10/23/17 13:03 Dose: 600 mg Lisinopril (Prinivil) 20 mg PO DAILY@1999 [facility] Last Admin: 10/22/17 20:05 Dose: 20 mg Ondansetron HCl (Zofran Odt) 8 mg PO Q6H PRN PRN Reason: nausea, able to take PO Potassium Chloride (Klor-Con 10) 20 meq PO DAILY [facility] Last Admin: 10/23/17 11:58 Dose: 20 meq Promethazine HCl/Codeine (Phenergan With Codeine) 5 - 10 ml PO Q6H PRN PRN Reason: Cough Last Admin: 10/23/17 14:27 Dose: 5 ml Temazepam (Restoril) 15 mg PO BEDTIME PRN PRN Reason: Sleep Discontinued Medications Enoxaparin Sodium (Lovenox) 40 mg SUBCUT DAILY@1600 [facility] Last Admin: 10/21/17 16:17 Dose: 40 mg Sodium Chloride (Normal Saline) 1,000 mls @ 500 mls/hr IV .BOLUS [facility] Last Admin: 10/21/17 14:30 Dose: 500 mls/hr Sodium Chloride (Normal Saline) Confirm Administered Dose 1,000 mls @ as directed .ROUTE .STK-MED ONE Stop: 10/21/17 14:14 Last Admin: 10/21/17 14:28 Dose: Not Given Sodium Chloride (Normal Saline) 1,000 mls @ 500 mls/hr IV ONETIME ONE Stop: 10/21/17 15:59 Last Admin: 10/21/17 15:52 Dose: Not Given Sodium Chloride (Normal Saline) 1,000 mls @ 125 mls/hr IV ASDIRECTED [facility] Last Admin: 10/23/17 02:30 Dose: 125 mls/hr Levofloxacin/Dextrose 500 mg/ (Premix) 100 mls @ 100 mls/hr IV Q24H [facility] Last Admin: 10/22/17 16:07 Dose: Not Given Levofloxacin/Dextrose 500 mg/ (Premix) 100 mls @ 100 mls/hr IV ONETIME ONE Stop: 10/22/17 16:59 Last Admin: 10/22/17 16:03 Dose: 100 mls/hr Iopamidol (Isovue-300 (61%)) 100 ml IVPUSH ONETIME ONE Stop: 10/23/17 17:31 - Exam General: Reports: Alert, Oriented, Mild Distress Neck: Reports: Supple Lungs: Reports: Clear to Auscultation, Normal Respiratory Effort Cardiovascular: Reports: Regular Rate, Regular Rhythm GI/Abdominal Exam: Normal Bowel Sounds, Soft, Non-Tender, No Organomegaly, No Distention, No Abnormal Bruit, No Mass, Pelvis Stable Back Exam: Reports: Normal Inspection, Full Range of Motion. Denies: CVA Tenderness (L), CVA Tenderness (R) Extremities: Normal Inspection, Normal Range of Motion, Non-Tender, No Pedal Edema, Normal Capillary Refill Skin: Reports: Warm, Dry, Intact Neurological: Reports: No New Focal Deficit Psy/Mental Status: Reports: Alert, Depressed
[2017-10-23] MEDS ORDERED: NS + KCl 20mEq/L 1,000 ML IV SCH (17:45)
== END 2017-10-23 18:00 | DRG 720 ==
LOC: UNDOADMIN 13:55 → CC.MS 13:55
PROVIDERS: ADMIT Family Medicine; ATTEND Family Medicine
DX: A41.50 Gram-negative sepsis, unspecified (principal); N39.0 Urinary tract infection, site not specified; E87.6 Hypokalemia; M50.30 Other cervical disc degeneration, unspecified cervical region; E78.5 Hyperlipidemia, unspecified; I10 Essential (primary) hypertension; H81.399 Other peripheral vertigo, unspecified ear; Z79.899 Other long term (current) drug therapy
CPT/HCPCS: 36415; 71046; 74177; 76770; 80048; 80053; 81001; 82550; 84484; 85025; 86140; 87040; 87077; 87086; 87088; 87186; 87804; 93005; A9270-GY; J0696; J1650; J1956; J3480; J7030; Q9967

== ENCOUNTER → 2019-06-17 | Day surgery (SDC) | payer BC ==
[~2019-06-17] MED LIST: Lactated Ringers 1,000 ML IV SCH; Propofol 200 MG/20 ML SDV IV ONE
[2019-06-17 12:55] VITALS: PULSE 82
[2019-06-17 13:08] VITALS: BP 148/73
--- NOTE | 2019-06-17 16:15 | OR ---
DATE OF OPERATION: 06/17/2019 PREOPERATIVE DIAGNOSIS: HISTORY OF POLYPS. POSTOPERATIVE DIAGNOSIS: HISTORY OF POLYPS. SURGEON: Joshua Akhtar MD PROCEDURE: FULL-LENGTH COLONOSCOPY WITH SNARE POLYP REMOVAL X4, FORCEPS POLYP REMOVAL X1. ANESTHESIA: MAC. COMPLICATIONS: None. SPECIMEN: Tubular adenomas x5, all 0.5 cm less. FINDINGS: 1. Full-length colonoscopy. 2. Five separate tubular adenomas, see report. RECOMMENDATIONS: Followup colonoscopy in 5 years. INDICATIONS: The patient has a prior colonoscopy about 6 years ago where she had a tubular adenoma removed. This was a followup in that regard. DESCRIPTION OF PROCEDURE: The patient was prepped and draped, placed in the left lateral decubitus position. A lubricated Olympus colonoscope was inserted and easily advanced to the cecum. Direct visualization of the ileocecal valve was accomplished. The bowel prep was fine. Upon withdrawal, the cecum was benign. In the [id number] ascending colon, the patient had a flat and slightly stalked polyp deep in the haustral fold. We were able to get a snare around it and remove it. It was hanging on, it was hard to get, so we removed the rest of it in its entirety with a forceps. Resolution of bleeding was spontaneous. The rest of the ascending and transverse colon, descending colon were benign. In the sigmoid area, the patient had 3 polyps at its distal portion, 1 around 35 cm and 2 more around 25 to 20. All 3 of these were tubular adenomas, stalked and easily removed with a snare and suctioned into polyp traps #1, 2, and 3 respectively. The rectal vault was benign. A small hyperplastic- appearing polyp flat and sessile was removed with a forceps in its entirety. Retroflexion showed no perianal lesions. Air was suctioned, scope removed without complication. SAMMY/LOPEZ /[id number]
== END ==
LOC: CC.SDS 11:02
PROVIDERS: ATTEND Family Medicine
DX: Z12.11 Encounter for screening for malignant neoplasm of colon (principal); D12.5 Benign neoplasm of sigmoid colon; D12.7 Benign neoplasm of rectosigmoid junction; D12.8 Benign neoplasm of rectum; K63.5 Polyp of colon; I10 Essential (primary) hypertension; E78.5 Hyperlipidemia, unspecified; D32.9 Benign neoplasm of meninges, unspecified; E66.9 Obesity, unspecified; Z68.31 Body mass index [BMI] 31.0-31.9, adult; Z86.010 Personal history of colon polyps; Z79.899 Other long term (current) drug therapy
CPT/HCPCS: 45385; J2704; J7120

== ENCOUNTER 2024-12-23 07:31 | Day surgery (SDC) | payer MEDICARE, BC ==
[2024-12-23] MEDS: Lactated Ringers 1,000 ML IV SCH (07:47)
[2024-12-23 09:42] VITALS: BP 108/78; PULSE 77
== END 2024-12-23 09:40 | disposition home or self-care (01) ==
LOC: CC.SDS 07:31
PROVIDERS: ATTEND Family Medicine
DX: Z12.11 Encounter for screening for malignant neoplasm of colon (principal); D12.2 Benign neoplasm of ascending colon; D12.3 Benign neoplasm of transverse colon; D12.5 Benign neoplasm of sigmoid colon; D12.8 Benign neoplasm of rectum; K57.30 Diverticulosis of large intestine without perforation or abscess without bleeding; I10 Essential (primary) hypertension; Z79.899 Other long term (current) drug therapy; Z86.0100 Personal history of colon polyps, unspecified
CPT/HCPCS: 00811; 88305; J7120